=== PATIENT | female | born 1955 | race Caucasian/White ===

== ENCOUNTER → 2017-03-13 | Outpatient (CLI) | payer MEDICAID | END | disposition home or self-care (01) | LOC: RAD.S 13:12 | DX: E04.2 Nontoxic multinodular goiter (principal) ==

== ENCOUNTER → 2017-03-17 | Outpatient (CLI) | payer MEDICAID | END | disposition home or self-care (01) | LOC: RAD.S 09:13 | DX: Z12.31 Encounter for screening mammogram for malignant neoplasm of breast (principal) ==